=== PATIENT | male | born 2000 | race Caucasian/White ===

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

== ENCOUNTER 2022-08-06 12:34 | Emergency (ER) | payer OTHER, SELFPAY ==
[2022-08-06 13:20] VITALS: BP 121/74; PULSE 63; RESP 18; TEMP 37; O2SAT 98; BMI 24.5
[2022-08-06 13:36] LABS: UTC Strep Screen (Rapid) Negative (Negative)
--- NOTE | 2022-08-06 13:46 | EXP.UTC ---
Discharge Plan Disposition Patient Disposition: Home, Self-Care Condition: Good Prescriptions Prescriptions: New methylprednisolone [Medrol (Howard)] 4 mg tablets,dose pack See Rx Instructions .Route .COMPLEX 6 Days Qty: 21 0RF Rx Instructions: taper pack; amoxicillin-pot clavulanate 875-125 mg Tablet 1 tab PO Q12H Qty: 20 0RF guaifenesin [Mucinex] 600 mg tablet extended release 12hr 600 mg PO BID PRN (Reason: cough) Qty: 20 0RF No Action carbamazepine 200 mg tablet 800 mg PO QAM amitriptyline 25 mg tablet 25 mg PO BID omeprazole 20 mg capsule,delayed release(DR/EC) 20 mg PO DAILY carbamazepine 200 mg tablet 600 mg PO QPM polyethylene glycol 3350 17 GM powder in packet 17 gm PO DAILY methylphenidate HCl 20 MG tablet 20 mg PO DIRECTED Rx Instructions: 20 MG IN AM AND 10 MG PO NOON montelukast 10 MG tablet 10 mg PO PM cholecalciferol (vitamin D3) 1,000 UNIT capsule 2,000 unit PO DAILY cetirizine 10 MG capsule 10 mg PO DAILY prednisone 10 MG tablet 10 mg PO BID 3 Days Qty: 6 0RF ondansetron 4 MG tablet,disintegrating 4 mg PO Q8HP PRN (Reason: Nausea) Qty: 20 0RF amoxicillin-pot clavulanate 1 EACH tablet 1 tab PO Q12H 10 Days Qty: 20 0RF Referrals Follow up/Referrals: Joel Campos MD [Primary Care Provider] - See instructions Activity Restrictions/Add. Instructions Additional Instructions/Restrictions: *Monitor Temp, Over the counter Motrin or Tylenol as directed/as needed Tylenol every 4 hours and Motrin every 6 hours (as long as your family doctor has told you that you can take it) for fever or pain. and straight to ER if unable to lower temp less than 101.0 after medication given *Warm salt water gargles may help to soothe the throat *Throat Lozenges? *Warm fluids like tea with honey may help to soothe the throat? *Sleep elevated *Humidifier/Vaporizer Your throat swab was sent for culture. Those results are typically sent to your primary care. Be sure to follow up in 2-3 days with your family doctor/primary care physician if no improvement so they can review those result and treat if necessary. If you don?t have a primary care doctor, I recommend you get one but in the mean time, you will have to return to a walk in clinic Follow up IMMEDIATELY for new or worsening symptoms or no Noticeable improvement over the next 48-72 hours. 911 for difficulty breathing or swallowing Clinical Impressions Clinical Impression: Sinusitis, Bronchitis Stand Alone Forms Stand Alone Forms: Work/School Release Instructions Patient Instructions: DI for Sinusitis, Acute Bronchitis Discharge ED Provider: Tamar Fabian [facility] [place] General Stated complaint: sore throat soa Mode of Arrival: Ambulatory Source of Information: Patient Limitations: No Limitations Time Seen by Provider: 08/06/22 13:46 Description of Symptoms (Recalled from Triage Doc. by RN): PATIENT C/O FEVER, SORE THROAT, AND PAIN WITH BREATHING AND SWALLOWING X 4 DAYS HEENT Symptoms (Recalled from RN notes): Yes Resp Symptoms (Recalled from RN notes): No Skin Symptoms (Recalled from RN notes): No MS Symptoms (Recalled from RN notes): No Functional Status (Recalled from RN notes): WNL History of Present Illness Provider Complaint: Patient states that he has been having sore throat, sinus pain and pressure, pain in both ears and pain in throat/chest area with cough States that he feels like his throat is raw and hurts with swallowing and cough Related Data Home Medications Medication Instructions Recorded Confirmed amitriptyline 25 mg tablet 25 mg PO BID HEADACHES 12/17/17 04/20/20 carbamazepine 200 mg tablet 600 mg PO QPM MOOD 12/17/17 04/20/20 carbamazepine 200 mg tablet 800 mg PO QAM MOOD 12/17/17 04/20/20 omeprazole 20 mg capsule,delayed 20 mg PO DAILY GERD 12/17/17 04/20/20 release cetirizine 10 mg capsule 10 mg PO
[2022-08-06 14:00] VITALS: BP 121/74; PULSE 63; RESP 18; TEMP 37; O2SAT 98
== END 2022-08-06 14:05 | disposition home or self-care (01) ==
PROVIDERS: Emergency Provider Nurse Practitioner; PCP Family Medicine
DX: J02.9 Acute pharyngitis, unspecified (principal); H92.03 Otalgia, bilateral; R50.9 Fever, unspecified; R05.9 Cough, unspecified; G43.909 Migraine, unspecified, not intractable, without status migrainosus; J45.909 Unspecified asthma, uncomplicated; Z79.52 Long term (current) use of systemic steroids; Z79.84 Long term (current) use of oral hypoglycemic drugs
CPT/HCPCS: 87880; 99213; G0463

== ENCOUNTER → 2023-02-18 11:12 | Outpatient (CLI) | payer OTHER, SELFPAY ==
[2023-02-18 15:55] LABS: PH,Semen 8.5 (7.3-8.3); Semen Viscosity Stringy (Normal); WBCs,Semen Negative
[2023-02-18 15:56] LABS: 3Hr Sperm Motility 45 % (50-60); Motility Quality Moderate Progression (Mod-Rapid); Sperm Motility 60 % (50-90)
[2023-02-18 15:57] LABS: 3Hr Motility Quality Moderate Progression (Mod-Rapid)
[2023-02-18 16:01] LABS: Sperm Count 14 mil/mm3 (20-160)
[2023-02-18 16:41] LABS: Sperm Morphology Normal (Normal)
== END ==
PROVIDERS: PCP Family Medicine; Visit Provider Nurse Practitioner Obstetrics & Gynecology
DX: R86.9 Unspecified abnormal finding in specimens from male genital organs (principal)
CPT/HCPCS: 89320